=== PATIENT | female | born 1930 | race Caucasian/White ===

== ENCOUNTER 2016-07-08 06:50 | Inpatient (IN) | payer MEDICARE ==
[2016-07-08] MEDS ORDERED: Sodium Chloride 0.9% 500 ML IV ONE ×2 (07:19→07:20)
--- NOTE | 2016-07-08 07:24 | ED Physician Chart ---
Chief Complaint/HPI - Patient Information Date Seen:: 07/08/16 Time Seen:: 07:06 Chief Complaint:: VOMITING (CHRONIC) WEAKNESS IN LEGS THIS AM Allergies:: Allergies Allergy/AdvReac Type Severity Reaction Status Date / Time Penicillins Allergy Verified 07/08/16 07:00 This 85 year old female awoke this AM and requested that her daughter all the paramedics because "something was wrong." The patient has chronic nausea and vomiting and threw-up this AM. She normally has assistance when she walks but this AM was much weaker. Patient also had a headache this AM. She has headaches off and on similar to today's headache. She denies any chest pain or difficulty breathing. 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 Nothing new at this time.) ENT: No earache, No sore throat, Other (has difficulty swallowing liquids.) Neck: No neck pain, No swelling, No stiffness, Other Cardio Vascular: No chest pain, No palpitations, No edema Pulmonary: No SOB, No cough, No sputum, No wheezing GI: Nausea, Vomiting, No diarrhea, Pain (PT with mild abd pain today. This is chronic.) G/U: No dysuria, No frequency, No hematuria Geospatial Engineer: No abnormal vaginal bleed Musculoskeletal: No bone or joint pain, No back pain, No muscle pain Psychiatric: Anxiety, No suicidal ideation Hematopoietic: No bruising, No lymphadenopathy Allergic/Immuno: No urticaria, No angioedema Neurological: No syncope, No focal symptoms, Weakness (WEAKNESS IS GENERALIZED. PT HAS CHRONIC TREMOR. ), No paresthesia, Headache (PT has very course tremors that look like seizures to the patient's daughter), Dizziness, Vertigo Past Medical History - Past Medical History Past Medical History: HTN, Thyroid disorder, Other (has tremor but has not been diagnosed with Parkinson's ds. Athrosclerosis of carotids. 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 PT also with history of colitis.) Social History: Smoker, No Alcohol, No Drug Use, Other (pt lives with her daughter who is also her designated customer care assistant) Surgical History: Appendectomy, Cholecystectomy, Hysterectomy Family Medical History - Family Member Mother History Unknown: Yes Physical Exam - Physical Examination General/Constitutional: Awake, Well-developed, well-nourished, Non-toxic appearing Other Gen/Cons comments:: Non-ambulatory on her own. Awake and alert. Head: Atraumatic Other Eyes comments:: There is opasificaion of the LT cornea. There is decreased vision in the RT eye and the pt is unable to finger count out of it. RT pupil is round and responds to light. The PT has course horizonal nystagmus on both LT and RT gaze. Skin: Nl inspection, No rash, No skin lesions, No ecchymosis, Well hydrated, No lymphadenopathy ENMT: External ears, nose nl, Nasal exam nl, Oropharynx nl, Tonsils nl Other ENMT comments:: NO teeth on top. NO dentures. Has her bottom teeth. Neck: Nontender, No JVD, No nuchal rigidity, No mass, No stridor Respiratory: Nl effort/Exclusion, Clear to Auscultation, No Wheeze/Rhonchi/Rales Cardio Vascular: RRR, No murmur, gallop, rubs, NL S1 S2 Other Cardio Vascular comments:: Adequate pulses in all 4 extremities, GI: No organomegaly, No hernia, Normal BS's, No mass/bruits, No McBurney tenderness Other GI comments:: Soft and non-tender without rebound or guarding. : No CVA tenderness Extremities: Full ROM, normal strength in all extremities, No edema, Normal digits & nails Other Extremities comments:: NO calf tenderness Neuro/Psych: Alert/oriented, Normal sensory exam, Normal motor strength, Judgement/insight normal, Mood normal, No focal deficits Other Neuro/Psych comments:: Able to lift both legs off the gurney. Very weak when she tries to walk with assistance. Labs/Radiology/EKG Results - Lab Results Results: Laboratory Tests 07/08/16 07/08/16 07/08/16 07:39 07:39 07:39 WBC 5.9 RBC 4.90 Hgb 13.5 Hct 39.9 MCV 81.3 MCH 27.6 MCHC Differential 33.9 RDW 15.7 Plt Count 234 MPV 8.5 Neutrophils % 66.0 Lymphocytes % 24.3 Monocytes % 6.3 Eosinophils % 3.1 Basophils % 0.3 Sodium 133 L Potassium 3.7 Chloride 105 Carbon Dioxide 24.2 Anion Gap 7.5 BUN 13 Creatinine 0.9 Est GFR ( Amer) TNP Est GFR (Non-Af Amer) TNP BUN/Creatinine Ratio 14.4 Glucose 106 H Calcium 10.0 Total Bilirubin 0.9 AST 17 ALT 7 Alkaline Phosphatase 55 Troponin I 0.02 B-Natriuretic Peptide 126.0 H Total Protein 7.6 Albumin 4.3 Globulin 3.3 Albumin/Globulin Ratio 1.3 Amylase 56 Lipase 8 L Urine Source Urine Color Urine Clarity Urine pH Ur Specific [place] Urine Protein Urine Glucose (UA) Urine Ketones Urine Blood Urine Nitrate Urine Bilirubin Urine Urobilinogen Ur Leukocyte Esterase Urine RBC Urine WBC Ur Epithelial Cells Urine Bacteria 07/08/16 08:45 WBC RBC Hgb Hct MCV MCH MCHC Differential RDW Plt Count MPV Neutrophils % Lymphocytes % Monocytes % Eosinophils % Basophils % Sodium Potassium Chloride Carbon Dioxide Anion Gap BUN Creatinine Est GFR ( Amer) Est GFR (Non-Af Amer) BUN/Creatinine Ratio Glucose Calcium Total Bilirubin AST ALT Alkaline Phosphatase Troponin I B-Natriuretic Peptide Total Protein Albumin Globulin Albumin/Globulin Ratio Amylase Lipase Urine Source [place] Urine Color YELLOW Urine Clarity SL. CLOUDY Urine pH 7.0 Ur Specific [place] 1.015 Urine Protein NEGATIVE Urine Glucose (UA) NEGATIVE Urine Ketones NEGATIVE Urine Blood TRACE Urine Nitrate NEGATIVE Urine Bilirubin NEGATIVE Urine Urobilinogen 0.2 Ur Leukocyte Esterase SMALL H Urine RBC 0-2 Urine WBC 10-25 H Ur Epithelial Cells RARE Urine Bacteria MODERATE UA consistent with UTI. CXR with borderline cardiomegaly and no evidence of CHF. No areas of pulmonary consolidation. No pneumothorax. Pleural effusions. IMPRESSION: no ACUTE CARDIOPULMONARY FINDINGS CT scan of the abdomen shows atelectatic changes in the lower lobes of the lungs. No evidence of acute hepatic lesions. That is post cholecystectomy. Pancreas is atrophied. Colonic diverticulosis is noted. An subacute diverticulitis. His fatty infiltration of the colonic wall along the before meals ending: In the patient has a history of colitis. Heavy atherosclerotic vascular disease in the abdominal aorta and its branches. Minimal inflammatory changes are seen along the posterior urinary bladder wall regions. Advanced degenerative changes of the spine are noted. - EKG Interpretations EKG Time:: 08:43 Rhythm: Probable Atrial Fibrillation [place]: [place] Left [place] Deviation Rate: 64 Comments:: ST depression in V4 through V6. could be ischemia. Assessment - Assessment General Assessment: CASE SUMMARY: This 85-year-old female awoke this morning and had nausea and vomiting. She also had generalized abdominal pain. She had a feeling that something just wasn't right and she was unable to ambulate without assistance. She has a past history of chronic nausea and vomiting. She status post cholecystectomy and appendectomy. On physical examination she was awake and alert and oriented 4. Lungs were clear to auscultation but her pulse ox was in the mid 80 range. Chest x-ray was negative for any areas of pulmonary consolidation. CT scan of the abdomen was positive for diverticulosis without diverticulitis. The urine was positive for moderate bacteria and 10-50 white cells. Diagnosis of UTI was made and the patient received ceftriaxone in the emergency department. Patient was rehydrated with normal saline. The patient' s primary care physician is not on staff at this facility and the patient will be admitted to who is panel coverage for today. Admitted in stable condition. MDM DDX FOR WEAKNESS AND UNABLE TO WALK: NOT severe anemia as hemoglobin was in the normal range. NOT electrolyte imbalance based on laboratory results. NOT diabetic ketoacidosis as the blood sugar was in the 110 range and no ketones were present in the urine. NOT SEPSIS based on the patient's vital signs and no leukocytosis. NOT myocardial ischemia as troponin was in the normal range and there were no acute ischemic findings on the EKG. ED Septic Shock - . Is Septic Shock (SBP<90, OR Lactate>4 mmol\\L) present?: No Reassessment (Disposition) - Reassessment Reassessment Condition:: Improved - Diagnosis Diagnosis:: URINARY TRACK INFECTION. COLITIS. NAUSEA AND VOMITING. DEHYDRATION. 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 HYPERTENSION. - Aftercare/Follow up Instructions Aftercare/Follow-Up Instructions:: Counseled pt regarding lab results/diagnosis & need follow up, Counseled pt & family regarding lab results/diagnosis & need follow up - Patient Disposition Discharge/Transfer:: Acute Care w/in this hosp Accepting Physician:: WILL ADMIT TO MED/SURG BED
[2016-07-08 07:34] VITALS: BP 198/88
[2016-07-08 07:49] LABS: % BASOPHILS 0.3 % (0.0-2.0); % EOSINOPHILS 3.1 % (0.0-5.0); % LYMPHOCYTES 24.3 % (20.0-50.0); % MONOCYTES 6.3 % (2.0-10.0); HEMATOCRIT 39.9 % (35.0-45.0); HEMOGLOBIN 13.5 gm/dL (11.7-16.1); MEAN CELL VOLUME 81.3 fl (81-100); MEAN CORPUSCULAR HEMOGLOBIN 27.6 pg (27.0-31.0); MEAN CORPUSCULAR HGB CONC 33.9 pg (28.0-36.0); MEAN PLATELET VOLUME 8.5 fl; NEUTROPHILE ABSOLUTE 3.9 Th/cmm (1.8-8.0); PLATELET COUNT 234 Th/cmm (150-400); RED CELL DISTRIBUTION WIDTH 15.7 % (11.5-20.0); WHITE BLOOD COUNT 5.9 Th/cmm (4.8-10.8)
[2016-07-08 08:10] LABS: ALB/GLOB RATIO 1.3 (1.0-1.8); ALKALINE PHOSPHATASE 55 U/L (34-104); AMYLASE SERUM 56 U/L (29-103); ANION GAP 7.5 (7.0-16.0); BILIRUBIN,TOTAL 0.9 mg/dL (0.3-1.0); BUN - UREA NITROGEN 13 mg/dL (7-25); BUN/CREATININE RATIO 14.4; CARBON DIOXIDE 24.2 mEq/L (21.0-31.0); CHLORIDE 105 mEq/L (98-107); CREATININE - SERUM 0.9 mg/dL (0.6-1.2); GLUCOSE 106 mg/dL (70-105); LIPASE 8 U/L (11-82); POTASSIUM SERUM 3.7 mEq/L (3.5-5.1); SGOT 17 U/L (13-39); SGPT/ALT 7 U/L (7-52); SODIUM SERUM 133 mEq/L (136-145)
[2016-07-08] MEDS ORDERED: Morphine Sulfate 2 mg/mL 1mL Syr ONE (08:14)
[2016-07-08] MEDS ORDERED: Metoclopramide 5 mg/mL 2mL Vial ONE (08:22)
[2016-07-08] MEDS ORDERED: Metoclopramide 5 mg/mL 2mL Vial IVP STA (08:22)
[2016-07-08 08:58] LABS: URINE BILIRUBIN NEGATIVE (NEGATIVE); URINE BLOOD TRACE (NEGATIVE); URINE COLOR YELLOW; URINE GLUCOSE (UA) NEGATIVE (NEGATIVE); URINE KETONE NEGATIVE (NEGATIVE); URINE PROTEIN NEGATIVE (NEGATIVE); URINE UROBILINOGEN 0.2 E.U./dL (0.2 - 1.0)
[2016-07-08 08:59] LABS: URINE BACTERIA MODERATE /hpf (NONE SEEN); URINE EPITHELIAL CELLS RARE /lpf (FEW); URINE RBC 0-2 /hpf (0-5)
[2016-07-08 09:27] LABS: TROP I 0.02 ng/mL (0.01-0.05)
[2016-07-08] MEDS ORDERED: cefTRIAXone 2 GM in Sodium Chloride 0.9% 100 ML IV ONE (09:45)
--- NOTE | 2016-07-08 10:13 | Diagnostic Imaging Report ---
CHEST X-RAY: AP view INDICATION: Decreased oxygen saturation COMPARISON: None FINDINGS: Chronic lung changes are seen with increased right basal lung markings. No focal consolidation or pleural effusions. Mild cardiomegaly is noted with atherosclerosis. Degenerative changes of the spine are noted. There is mild increased right paratracheal soft tissue density. IMPRESSION: Chronic lung changes are seen with increased right basal lung markings also likely chronic. No focal consolidation identified. Findings may be due to COPD. Mildly prominent right paratracheal soft tissue density which may be due to projection and patient positioning or prominent vascular structures. Lymphadenopathy may be considered, but is less likely. Please correlate with clinical history malignance. Short-term follow-up CT of the chest would provide for additional detail and assessment. Mild cardiomegaly with atherosclerosis.
--- NOTE | 2016-07-08 10:22 | Diagnostic Imaging Report ---
CT abdomen and pelvis without intravenous contrast Indication: Vomiting Comparison: None, Technique: Axial images were obtained from the lung bases to the bilateral proximal femurs without IV contrast. Coronal reconstructions were made. total DLP: 402, CTDI8.9 FINDINGS: Hypoventilatory and atelectatic changes of the lung bases are noted. Assessment of the solid organs is limited due to lack of IV contrast. No evidence of focal hepatic lesions. The patient is status post cholecystectomy. No focal splenic lesions. Pancreatic gland atrophy is noted with no evidence of focal lesions. No focal adrenal lesions. No evidence of hydronephrosis. Mild nonspecific bilateral perinephric inflammatory changes are seen. Bilateral renal vascular calcifications are noted. Colonic diverticulosis is noted. No evidence of diverticulitis. There is fatty infiltration of the colonic wall along the ascending colon. Appendix is not visualized. No evidence of free fluid or free air. Heavy atherosclerotic vascular disease of the abdominal aorta and branches are seen with areas of ectasia of the infrarenal abdominal aorta measuring up to 2.4 cm. There may be old walled off dissections of the abdominal aorta. Minimal inflammatory changes are seen along the posterior urinary bladder wall regions. Advanced degenerative changes of the spine are noted. IMPRESSION: Colonic diverticulosis without evidence of diverticulitis. Fatty infiltration of the colonic wall of the ascending colon which may be due to chronic infectious or inflammatory process. No evidence of small bowel obstruction. Mild inflammatory changes along the posterior urinary bladder wall. Possible cystitis cannot be excluded. Heavy atherosclerotic vascular disease with areas of ectasia of the infrarenal abdominal aorta and possible old walled off dissections. Note exam was limited due to lack of IV contrast. Evidence of prior cholecystectomy.
[2016-07-08] MEDS ORDERED: D5-0.9%NS 1,000 ML IV SCH (12:00)
--- NOTE | 2016-07-08 16:29 | Admit Criteria Form ---
Admit Criteria Forms - Admit Criteria Diagnosis: URINARY COMPLICATIONS Clinical Indications for Inpatient Care (Place 'X' for any and all applicable criteria): Ongoing inpatient care may be indicated for urinary complications with ANY ONE of the following: [X ]I. Urinary tract infection requiring inpatient care as indicated by ANY ONE of the following(8)(19)(20): [ ]a) Severe symptoms (eg, high fever, severe pain) [ ]b) Vomiting or dehydration requiring ongoing inpatient care [X ]c) IV antibiotic needs that cannot be managed at lower level of care [ ]d) Hemodynamic instability [ ]e) Obstruction of collecting system by stone or tumor [ ]II. Urinary retention requiring drainage or surgery (3)(4)(5)(17)(18) [ ]III. Renal failure (Use Renal Failure Criteria for further information.) [ ]IV. Oliguria(30) [ ]V. Post obstructive diuresis requiring close monitoring of urine output and intravenous compensation for excessive fluid losses(33) Extended stay beyond goal length of stay for primary condition may be needed until ALL of the following are present(3)(4)(5)(8): [ ]a) Renal function (creatinine) at baseline, or daily decreases in creatinine consistent with renal function return [ ]b) Voiding adequately or with urinary catheter or percutaneous suprapubic tube and management regimen in place that is performable at lower level of care. [ ]c) Urine output adequate [ ]d) Fever absent or resolving [ ]e) Infection absent or treatable at next level of care The original [employer] content created by [employer] has been revised. The portions of the content which have been revised are identified through the use of italic text or in bold, and [facility] has neither reviewed nor approved the modified material. All other unmodified content is copyright [facility] Please see references footnoted in the original [facility] edition 2016 Admit Criteria Met?: Yes
--- NOTE | 2016-07-08 23:51 | Consultation ---
Consult Note - Consult Note Service Date: 07/08/16 Referring Physician: Chris Baig Consult Note: PHYSICIAN Consultation Note: Date of Admission: 07/08/16 Purpose of Consultation: UTI. Chief Complaint: Nausea, vomiting and generalized weakness. History of Present Illness: Patient ASHLY VILLANUEVA was admitted to location Medical[facility] Unit I with ALOC. 85 Y female with history of HTN, hypothyroidism, colitis brought the ED for nausea, vomiting and genralized weakness. On initial evaluation, her temperature was 98.2 degree F and WBC count was 5900. She was found to have pyuria and bacteriuria. She was started on rocephin and gentamicin. ID consult was called for antibiotic management. Allergies Allergy/AdvReac Type Severity Reaction Status Date / Time Penicillins Allergy Verified 07/08/16 07:00 Vital Signs Temp 98.1 F 07/08/16 20:00 Pulse 61 07/08/16 20:00 Resp 20 07/08/16 20:00 BP 132/67 07/08/16 20:00 Pulse Ox 94 07/08/16 20:00 Home Medication Medication Instructions Recorded Type Baclofen [Lioresal] 10 mg PO BID 07/08/16 History Levothyroxine [Synthroid] 0.075 mg PO QDAC 07/08/16 History Lisinopril [Zestril] 10 mg PO DAILY 07/08/16 History Lorazepam [Ativan] 0.5 mg PO HS PRN 07/08/16 History Metoprolol Tartrate [Lopressor] 50 mg PO BID 07/08/16 History Omeprazole 20 mg PO DAILY 07/08/16 History Ropinirole HCl [Requip] 1 mg PO DAILY 07/08/16 History Tramadol HCl [Ultram] 50 mg PO Q8HR PRN 07/08/16 History Current Medications Generic Name Dose Route Start Last Admin Trade Name Freq PRN Reason Stop Dose Admin Baclofen 10 mg 07/09/16 09:00 Lioresal PO 09/07/16 08:59 BID TONY Dextrose/Sodium Chloride 1,000 mls @ 75 mls/hr 07/08/16 12:00 D5-0.9%Ns IV 09/06/16 11:59 .[id number] TONY Ceftriaxone Sodium 1 gm/ 100 mls @ 100 mls/hr 07/09/16 12:00 Sodium Chloride IV 09/07/16 11:59 Q24HR TONY Gentamicin Sulfate 80 mg/ 102 mls @ 100 mls/hr 07/08/16 22:00 Sodium Chloride IV 09/06/16 21:59 Q12HR TONY Levothyroxine Sodium 0.075 mg 07/09/16 07:30 Synthroid PO 09/07/16 07:29 QDAC TONY Lisinopril 10 mg 07/09/16 09:00 Zestril PO 09/07/16 08:59 DAILY TONY Lorazepam 0.5 mg 07/08/16 21:10 Ativan PO 09/06/16 21:09 HS PRN Anxiety Protocol Metoprolol Tartrate 50 mg 07/09/16 09:00 Lopressor PO 09/07/16 08:59 BID TONY Miscellaneous 1 ea 07/08/16 21:14 Gentamicin Iv Per Pharmacy [facility] 09/06/16 21:13 PRN PRN PROTOCOL Pantoprazole Sodium 40 mg 07/09/16 09:00 Protonix PO 09/07/16 08:59 DAILY [facility] Ropinirole HCl 1 mg 07/09/16 09:00 Requip PO 09/07/16 08:59 DAILY TONY Tramadol HCl 50 mg 07/08/16 21:10 Ultram PO 09/06/16 21:09 Q8HR PRN Pain (Mild) Review of Systems: A 12 point ROS was reviewed with the pertinent positive and negatives noted in the HPI. GEN: There is no fever, no chills, no diaphoresis. C/o generalized weakness. HEENT: left eye blindness, no sore throat. RS: NO cough, no SOB. CVS: No CP, no palpitaions. GI: c/o nausea and vomting, denies abdominal pain, denies diarrhea, constipation. c/o difficulty taking pills for last 4 to 6 months. : Denies dysuria, hematuria. 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 c/o headache for 2 days. c/o dizziness on standing. Skin: Denies any rash, hives. Past Medical History HTN, hypothyroidism, ? back pains. Social History Smoking Status Current every day smoker Drug Use No Alcohol Use No Family Medical History Noncontributory. Physical Exam: General: No Acute Distress HEENT: Eyes: Left eye corneal opacity. Head is normocephalic, atraumatic on inspection. Oral cavity moist and pink tongue. NECK: Supple, no JVD, no use of accessory neck muscles. No lymphadenopathy. Cardio: +S1/S2 Auscultated, RRR, no murmurs/rubs/gallops noted Respiratory: Clear to Auscultate Bilaterally. Abdominal: Soft, Nondistended, Nontender to palpation x 4 quadrants. Bowel sounds present. Extremities: No Edema noted in the lower extremities Neurological: Alert and Oriented x3, Cranial Nerves II-XII intact bilaterally, Gait Steady, No Focal Deficits noted. Assessment/Plan: 1. UTI. 2. HTN. 3. Hyperlipidemia. 4. Left corneal opacity. 5. Difficulty taking pills. 6. Dizziness. Recommendations: Will continue Rocephin, when stable may change to po antibiotics according to the culture report. DC gentamicin. Swallow eval. Orthostatic BP. 2D echo. Thank you, Dr Baig for involving me in taking care of this patient. Signed, Femi Zuniga M.D. [id number]
[2016-07-09 06:23] LABS: % EOSINOPHILS 4.2 % (0.0-5.0); % LYMPHOCYTES 35.3 % (20.0-50.0); % NEUTROPHILS 51.5 % (40.0-80.0); MEAN CELL VOLUME 82.9 fl (81-100); MEAN CORPUSCULAR HGB CONC 33.8 pg (28.0-36.0); MEAN PLATELET VOLUME 9.1 fl; RED BLOOD COUNT 4.05 Mil/cmm (3.80-5.20); RED CELL DISTRIBUTION WIDTH 16.2 % (11.5-20.0); WHITE BLOOD COUNT 5.9 Th/cmm (4.8-10.8)
[2016-07-09 06:59] LABS: HEMATOCRIT 33.5 % (35.0-45.0); HEMOGLOBIN 11.3 gm/dL (11.7-16.1); PLATELET COUNT 185 Th/cmm (150-400)
[2016-07-09 07:17] LABS: ALB/GLOB RATIO 1.4 (1.0-1.8); ALKALINE PHOSPHATASE 51 U/L (34-104); ANION GAP 4.1 (7.0-16.0); BILIRUBIN,TOTAL 0.6 mg/dL (0.3-1.0); BUN - UREA NITROGEN 10 mg/dL (7-25); BUN/CREATININE RATIO 12.5; CALCIUM SERUM 9.1 mg/dL (8.6-10.3); CARBON DIOXIDE 25.5 mEq/L (21.0-31.0); CHLORIDE 110 mEq/L (98-107); CREATININE - SERUM 0.8 mg/dL (0.6-1.2); GLUCOSE 87 mg/dL (70-105); POTASSIUM SERUM 3.6 mEq/L (3.5-5.1); SGOT 14 U/L (13-39); SGPT/ALT 6 U/L (7-52); SODIUM SERUM 136 mEq/L (136-145)
[2016-07-09] MEDS ORDERED: Levothyroxine 0.075 Mg Tab PO SCH (07:30)
[2016-07-09] MEDS: Pantoprazole 40 mg EC Tab PO SCH (08:55)
[2016-07-09] MEDS ORDERED: VTE Chemical Prophylaxis Screen/Admission MC PRN (11:49)
--- NOTE | 2016-07-09 11:50 | Diagnostic Imaging Report ---
Head CT without intravenous contrast Indication: Altered mental status Comparison: None Technique: Axial images were obtained from the vertex to the skull base without IV contrast. Coronal reconstructions were made. Total DLP: 606, CTDI35 FINDINGS: Images of the brain obtained without contrast demonstrate no evidence of an acute hemorrhage. Mild atrophy is noted. Mild white matter disease noted. The ventricles and basal cisterns are patent. No mass effect or midline shift. Atherosclerotic vascular disease is noted. Sclerotic bilateral mastoid air cells are noted. The visualized paranasal sinuses are clear. IMPRESSION: No evidence of acute intracranial hemorrhage. Mild atrophy. Mild supratentorial white matter disease which is nonspecific and may be due to chronic microvessel ischemia.. Sclerotic bilateral mastoid air cells which may be due to chronic inflammatory process.
[2016-07-09] MEDS ORDERED: cefTRIAXone 1 GM in Sodium Chloride 0.9% 100 ML IV SCH (12:00)
[2016-07-09] MEDS: metroNIDAZOLE 500mg/NS 100mL 500 MG/100 ML BAG IV SCH ×2 (13:31→21:59)
--- NOTE | 2016-07-09 19:39 | Cardiology ---
Patient of Dr. Baig. M-MODE ECHOCARDIOGRAM: Mitral Valve: Anterior leaflet of the mitral valve shows normal excursion, EF velocity. Posterior leaflet of the mitral valve shows normal excursion. Left ventricular posterior wall shows increased thickness, normal excursion. Interventricular septum shows increased thickness, normal excursion, hypertrophy of the left ventricle, ejection fraction 60%. Left atrium normal. Aortic root shows normal dimension, normal excursion of aortic leaflets. CONCLUSION: Hypertrophy of the left ventricle, ejection fraction 60%. 2D ECHO: Long axis view showed normal-sized left ventricle with hypertrophy of the left ventricle. Left atrium normal. Aortic root shows normal dimension, normal excursion of aortic leaflets. Short axis view of mitral valve normal. Short axis view of aortic valve normal. Apical four-chamber view showed normal-sized left ventricle with hypertrophy of the left ventricle. Left atrium normal. Right ventricular cavity, right atrium normal. No pericardial effusion. CONCLUSION: Hypertrophy of the left ventricle, ejection fraction 60%. Doppler study shows moderate aortic regurgitation, mild mitral regurgitation, mild tricuspid regurgitation. Pressure half time for aortic regurgitation is 2574. [facility]# [id number]
--- NOTE | 2016-07-09 23:00 | History & Physical ---
PATIENT IDENTIFICATION: This is an 85-year-old female. CHIEF COMPLAINT: Nausea, vomiting, generalized weakness, and "don't feel good." HISTORY OF PRESENT ILLNESS: This is an 85-year-old female with history of hypertension, hypothyroidism, history of colitis, degenerative joint disease, presented to Emergency Room for evaluation of nausea and vomiting with generalized weakness. The patient did have elevated fever. The patient did have subjective symptoms of fever and chills as well. The patient called her daughter stating that she did not fill good because these symptoms have been going on for last couple of days. When the patient arrived in the Emergency Room, the patient was worked up in the Emergency Room. The patient was also noted to have some headache as well. After being worked up in the Emergency Room, the patient was advised to be admitted. PAST MEDICAL HISTORY: Remarkable for: 1. Hypertension. 2. Hypothyroidism. 3. Degenerative joint disease. 4. History of colitis. 5. Coronary artery disease. 6. Osteoporosis. PAST SURGICAL HISTORY: Appendectomy, cholecystectomy, and hysterectomy. SOCIAL HISTORY: She lives with family. The patient has no history of smoking cigarette, drinking alcohol, or using street drug use. FAMILY MEDICAL HISTORY: Remarkable for hypertension. REVIEW OF SYSTEMS: The patient stated that she feels better. The patient is currently denying any headache. 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 Tongue was pink and coated. Neck was supple. The patient denies any chest pain, shortness of breath, palpitation, abdominal pain, nausea, vomiting, hematemesis, hematuria, hematochezia, or melena. No seizure or syncopal episode. PHYSICAL EXAMINATION: GENERAL: The patient is alert, awake, and oriented, lying in the bed without any acute distress. VITAL SIGNS: Temperature 98.1, pulse 61, respiratory rate 18, and blood pressure 132/67. SKIN: Warm to touch. HEENT: Normocephalic and atraumatic. Opacified left cornea noted. Extraocular muscles are intact. Tongue was pink and coated. No facial asymmetry. NECK: Supple. No JVD. No hepatojugular reflex. No lymphadenopathy, thyromegaly, or carotid bruit. HEART: Both heart sounds are regular. No S3, no S4. CHEST: Lung equal in expansion, no wheezing, and no crackles. ABDOMEN: Soft. No guarding. No rigidity. Liver and spleen palpable. No palpable mass. EXTREMITIES: No edema and no cyanosis. Diffuse osteoarthritic changes noted. NEUROLOGIC: Nonfocal. AVAILABLE DIAGNOSTIC DATA: Performed in the Emergency Room has been reviewed. Total time reviewing the record was approximately 5 minutes. CLINICAL IMPRESSION: 1. Urinary tract infections. 2. Nausea and vomiting with generalized weakness secondary to dehydration, most likely. 3. Hypertension. 4. Hyperlipidemia. 5. Degenerative joint disease, most likely secondary to volume depletions. PLAN: 1. Admit this patient to Med/Surg. 2. IV antibiotics. 3. Infectious Disease and Gastroenterology consultation. 4. Appropriate home medicine reconciliation. 5. In the view of the patient had a questionable confusion, I will proceed with CT scan of the head as well. 6. Follow up lab. 7. Follow consult recommendation. 8. 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 [facility]# [id number]
--- NOTE | 2016-07-09 23:05 | Consultation ---
REQUESTING PHYSICIAN: Dr. Chris Baig. REASON FOR CONSULTATION: Abdominal pain and possible colitis. HISTORY OF PRESENT ILLNESS: This 85-year-old female was seen by Dr. Mayo as an outpatient admitted for a few day history of vague abdominal pain with nausea and vomiting. A CT of the abdomen and pelvis done in the Emergency Room suggested a right-sided colonic wall thickening, colonic diverticulosis without diverticulitis. No evidence of small bowel obstruction and possible cystitis. There is also heavy atherosclerotic vascular disease and previous cholecystectomy. The patient is now pain free. PAST MEDICAL HISTORY: Also notable for hypertension, hypothyroidism, tremor and possible colitis in the past. PAST SURGICAL HISTORY: Appendectomy, cholecystectomy and hysterectomy. ALLERGIES: To penicillin. MEDICATIONS: Here are baclofen, Rocephin, Synthroid, Zestril, IV fluids, Ativan, Lopressor, Zofran, Protonix, Requip and Ultram. SOCIAL HISTORY: No known tobacco, alcohol or drugs. FAMILY HISTORY: Noncontributory. REVIEW OF SYSTEMS: Negative. PHYSICAL EXAMINATION: VITAL SIGNS: Temperature 98.1, blood pressure is 138/63, pulse of 61 and respirations 16. GENERAL: The patient is well-developed elderly female, in no acute distress. HEENT: Sclerae are anicteric. Oropharynx is clear. CARDIOVASCULAR: Regular rate and rhythm. LUNGS: Clear to auscultation bilaterally. ABDOMEN: Soft, mild epigastric and bilateral flank tenderness to palpation without rebound or guarding. No hepatosplenomegaly is appreciated. EXTREMITIES: No clubbing, cyanosis or edema. RECTAL: Deferred. LABORATORY DATA/IMAGING: WBC 5.9, hemoglobin 11.3 and platelet count 185. Sodium 136 and creatinine 0.8. Liver enzymes normal. Amylase and lipase normal. Urinalysis is showing small leukocyte esterase and 10-25 wbc's. IMPRESSION: 1. Abdominal pain with nausea and vomiting rule out UTI versus possible nonspecific colitis. 2. Nausea and vomiting, rule out GERD. 3. History of hypertension, hypothyroidism, tremor and possible previous colitis, appendectomy, cholecystectomy and hysterectomy. 4. Aortic atherosclerosis. RECOMMENDATIONS: 1. Check stool studies if liquid stools. 2. Rocephin. 3. Add Flagyl. 4. Protonix. 5. Zofran. 6. Check outside records. The patient reports she had an upper endoscopy and colonoscopy in the last couple of years elsewhere. 7. Diet as tolerated. 8. Plan discussed with Dr. Baig and the patient's daughter over the telephone. Thank you Dr. Chris Baig for involving us in the care of your patient. If you have any further questions, please call us. JOB# [id number] MTDD
--- NOTE | 2016-07-09 23:58 | Infectious Disease Prog Note ---
Infectious Disease Subjective - Review of Systems Service Date: 07/09/16 Subjective: There is no new change. Infectious Disease Objective - Results Result Diagrams: 07/09/16 05:50 07/09/16 05:50 Recent Labs: Laboratory Last Values WBC 5.9 Th/cmm (4.8-10.8) 07/09/16 05:50 RBC 4.05 Mil/cmm (3.80-5.20) 07/09/16 05:50 Hgb 11.3 gm/dL (11.7-16.1) L D 07/09/16 05:50 Hct 33.5 % (35.0-45.0) L D 07/09/16 05:50 MCV 82.9 fl (81-100) 07/09/16 05:50 MCH 28.0 pg (27.0-31.0) 07/09/16 05:50 MCHC Differential 33.8 pg (28.0-36.0) 07/09/16 05:50 RDW 16.2 % (11.5-20.0) 07/09/16 05:50 Plt Count 185 Th/cmm (150-400) D 07/09/16 05:50 MPV 9.1 fl 07/09/16 05:50 Neutrophils % 51.5 % (40.0-80.0) 07/09/16 05:50 Lymphocytes % 35.3 % (20.0-50.0) 07/09/16 05:50 Monocytes % 8.0 % (2.0-10.0) 07/09/16 05:50 Eosinophils % 4.2 % (0.0-5.0) 07/09/16 05:50 Basophils % 1.0 % (0.0-2.0) 07/09/16 05:50 Sodium 136 mEq/L (136-145) 07/09/16 05:50 Potassium 3.6 mEq/L (3.5-5.1) 07/09/16 05:50 Chloride 110 mEq/L (98-107) H 07/09/16 05:50 Carbon Dioxide 25.5 mEq/L (21.0-31.0) 07/09/16 05:50 Anion Gap 4.1 (7.0-16.0) L 07/09/16 05:50 BUN 10 mg/dL (7-25) 07/09/16 05:50 Creatinine 0.8 mg/dL (0.6-1.2) 07/09/16 05:50 Est GFR ( Amer) TNP 07/09/16 05:50 Est GFR (Non-Af Amer) TNP 07/09/16 05:50 BUN/Creatinine Ratio 12.5 07/09/16 05:50 Glucose 87 mg/dL (70-105) 07/09/16 05:50 Calcium 9.1 mg/dL (8.6-10.3) 07/09/16 05:50 Total Bilirubin 0.6 mg/dL (0.3-1.0) 07/09/16 05:50 AST 14 U/L (13-39) 07/09/16 05:50 ALT 6 U/L (7-52) L 07/09/16 05:50 Alkaline Phosphatase 51 U/L (34-104) 07/09/16 05:50 Troponin I 0.02 ng/mL (0.01-0.05) 07/08/16 07:39 B-Natriuretic Peptide 126.0 pg/mL (5.0-100.0) H 07/08/16 07:39 Total Protein 6.2 gm/dL (6.0-8.3) 07/09/16 05:50 Albumin 3.6 gm/dL (3.7-5.3) L 07/09/16 05:50 Globulin 2.6 gm/dL 07/09/16 05:50 Albumin/Globulin Ratio 1.4 (1.0-1.8) 07/09/16 05:50 Amylase 56 U/L (29-103) 07/08/16 07:39 Lipase 8 U/L (11-82) L 07/08/16 07:39 Urine Source [place] 07/08/16 08:45 Urine Color YELLOW 07/08/16 08:45 Urine Clarity SL. CLOUDY (CLEAR) 07/08/16 08:45 Urine pH 7.0 07/08/16 08:45 Ur Specific [place] 1.015 (1.005-1.030) 07/08/16 08:45 Urine Protein NEGATIVE mg/dL (NEGATIVE) 07/08/16 08:45 Urine Glucose (UA) NEGATIVE mg/dL (NEGATIVE) 07/08/16 08:45 Urine Ketones NEGATIVE mg/dL (NEGATIVE) 07/08/16 08:45 Urine Blood TRACE (NEGATIVE) 07/08/16 08:45 Urine Nitrate NEGATIVE (NEGATIVE) 07/08/16 08:45 Urine Bilirubin NEGATIVE (NEGATIVE) 07/08/16 08:45 Urine Urobilinogen 0.2 E.U./dL (0.2 - 1.0) 07/08/16 08:45 Ur Leukocyte Esterase SMALL (NEGATIVE) H 07/08/16 08:45 Urine RBC 0-2 /hpf (0-5) 07/08/16 08:45 Urine WBC 10-25 /hpf (0-5) H 07/08/16 08:45 Ur Epithelial Cells RARE /lpf (FEW) 07/08/16 08:45 Urine Bacteria MODERATE /hpf (NONE SEEN) 07/08/16 08:45 - Physical Exam Vitals and I&O: Vital Signs Temp 98.1 F 07/08/16 20:00 Pulse 45 07/09/16 17:00 Resp 20 07/08/16 20:00 BP 112/55 07/09/16 17:00 Pulse Ox 94 07/08/16 20:00 Intake & Output 07/09/16 07/09/16 07/10/16 06:59 18:59 06:59 Intake Total 100 Balance 100 Intake: Intake, IV Amount 100 metroNIDAZOLE 500mg/NS 100 100mL 500 mg In 100 ml @ 100 mls/hr IV Q8HR [facility] Rx #:[id number] Other: Stool Characteristics Soft Brown Active Medications: Current Medications Baclofen (Lioresal) 10 mg PO BID [facility] Stop: 09/07/16 08:59 Last Admin: 07/09/16 16:59 Dose: 10 mg Dextrose/Sodium Chloride (D5-0.9%Ns) 1,000 mls @ 75 mls/hr IV .[id number] [facility] Stop: 09/06/16 11:59 Last Admin: 07/09/16 19:21 Dose: 75 mls/hr Ceftriaxone Sodium 1 gm/ (Sodium Chloride) 100 mls @ 100 mls/hr IV Q24HR [facility] Stop: 09/07/16 11:59 Last Admin: 07/09/16 11:54 Dose: 100 mls/hr Metronidazole (Flagyl) 500 mg in 100 mls @ 100 mls/hr IV Q8HR [facility] Stop: 09/07/16 12:59 Last Admin: 07/09/16 21:59 Dose: 100 mls/hr Levothyroxine Sodium (Synthroid) 0.075 mg PO QDAC [facility] Stop: 09/07/16 07:29 Lisinopril (Zestril) 10 mg PO DAILY [facility] Stop: 09/07/16 08:59 Last Admin: 07/09/16 08:56 Dose: 10 mg Lorazepam (Ativan) 0.5 mg PO HS PRN; Protocol PRN Reason: Anxiety Stop: 09/06/16 21:09 Metoprolol Tartrate (Lopressor) 50 mg PO BID [facility] Stop: 09/07/16 08:59 Last Admin: 07/09/16 17:00 Dose: Not Given Miscellaneous (Vte Chemical Prophylaxis Screen/ Admission) 1 ea PRN PRN PRN Reason: PROTOCOL Stop: 09/07/16 11:48 Ondansetron HCl (Zofran) 4 mg IV Q6H PRN PRN Reason: Nausea / Vomiting Stop: 09/07/16 12:07 Last Admin: 07/09/16 14:03 Dose: 4 mg Pantoprazole Sodium (Protonix) 40 mg PO DAILY [facility] Stop: 09/07/16 08:59 Last Admin: 07/09/16 08:55 Dose: 40 mg Ropinirole HCl (Requip) 1 mg PO DAILY [facility] Stop: 09/07/16 08:59 Last Admin: 07/09/16 09:10 Dose: 1 mg Tramadol HCl (Ultram) 50 mg PO Q8HR PRN PRN Reason: Pain (Mild) Stop: 09/06/16 21:09 General: no acute distress, well developed, well nourished HEENT: atraumatic, normocephalic, PERRLA, EOMI Neck: supple Cardiovascular: S1S2, regular Lungs: clear to auscultation bilaterally, clear to percussion Abdomen: soft, no tender Extremities: no cyanosis, no clubbing, no edema Neurological: awake, alert, oriented, CN 2-12 intact Skin: intact - Procedures Procedures: Procedures Procedure Code Date DO NOT USE LAPAROSCOPIC CHOLECYSTECTOMY 60123 12/04/98 CATARAC PHACOEMULS/ASPIR 13.41 09/21/98 CATARACT SURG W/IOL 1 STAGE 38273 02/19/98 CLOSED ENDOSCOPIC BIOPSY OF LARGE INTESTINE 45.25 03/13/99 COLONOSCOPY AND BIOPSY 24968 03/13/99 INSERT LENS AT CATAR EXT 13.71 02/19/98 LAPAROSCOPIC CHOLECYSTECTOMY 51.23 12/04/98 Infectious Disease Assmt/Plan - Assessment Assessment: Impression: 1. UTI. Recommendations: Continue same treatment.
[2016-07-10] MEDS: metroNIDAZOLE 500mg/NS 100mL 500 MG/100 ML BAG IV SCH (05:03)
[2016-07-10] MEDS: Pantoprazole 40 mg EC Tab PO SCH (08:44)
--- NOTE | 2016-07-19 18:21 | Discharge Summary ---
PRINCIPAL DIAGNOSES: 1. Urinary tract infection. 2. Abdominal pain with nausea, vomiting secondary to colitis. 3. Atherosclerotic heart disease. 4. Hypertension. 5. Gastritis. 6. Hypothyroidism. 7. Coronary artery disease. 8. Osteoporosis. 9. Degenerative joint disease. 10. Debility. 11. Altered mental status secondary to metabolic and infectious encephalopathy. BRIEF STATEMENT FOR THE REASON FOR ADMISSION: An 85-year-old female presented to Emergency Room for evaluation of confusion and altered mental status associated with nausea, vomiting and diarrhea. The patient was evaluated and subsequently admitted to the hospital for further treatment. Please refer to my dictated medical H and P for further information. HOSPITAL COURSE: The patient was admitted to Med/Surg floor. The patient was placed on IV antibiotic. GI consultation was requested. CT scan of the abdomen and pelvis was done which revealed colitis. The patient was given antibiotic with suspicious of possible chronic ischemia. Though patient started to have no symptoms of nausea and vomiting, the patient was able to take p.o., fairly well. It was suspected that the patient can have further workup done as an outpatient. EGD and colonoscopy were done 2 years ago, which was unremarkable as per patient's account. The patient was discharged with p.o. antibiotic, to be continued at home. At the time of discharge, all of her other medication was continued. The patient was given written prescription of p.o. antibiotic. 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 The patient was advised to see milling operator in office in 1-2 weeks. If recurrent symptoms, the patient was advised to go to Emergency Room. [facility]# [id number]
== END 2016-07-10 11:10 | disposition home or self-care (01) | DRG 689 ==
LOC: ER 06:50 → MSI 11:40
PROVIDERS: ADMIT Internal Medicine; ATTEND Internal Medicine
DX: N39.0 Urinary tract infection, site not specified (principal); G93.41 Metabolic encephalopathy; G20 Parkinson's disease; E86.0 Dehydration; I10 Essential (primary) hypertension; E78.5 Hyperlipidemia, unspecified; M19.90 Unspecified osteoarthritis, unspecified site; E03.9 Hypothyroidism, unspecified; I25.10 Atherosclerotic heart disease of native coronary artery without angina pectoris; M81.0 Age-related osteoporosis without current pathological fracture; K57.90 Diverticulosis of intestine, part unspecified, without perforation or abscess without bleeding; K52.9 Noninfective gastroenteritis and colitis, unspecified; I70.0 Atherosclerosis of aorta; F17.210 Nicotine dependence, cigarettes, uncomplicated; H17.9 Unspecified corneal scar and opacity; Z82.49 Family history of ischemic heart disease and other diseases of the circulatory system; Z90.49 Acquired absence of other specified parts of digestive tract; Z90.710 Acquired absence of both cervix and uterus; Z88.0 Allergy status to penicillin; Z79.899 Other long term (current) drug therapy
CPT/HCPCS: 36415-UA; 70450-TC; 71010-TC; 80053-TC; 81001-TC; 82150-TC; 83690-TC; 83880-TC; 84484-TC; 85025-TC; 87086-90; 90799; 93005; J0696; J1580; J2270; J2405; J2765; J7040; J7042; Z7610